=== PATIENT | female | born 1980 | race Caucasian/White ===

== ENCOUNTER 2022-09-08 21:30 | Emergency (ER) | payer OTHER, SELFPAY ==
[2022-09-08 21:35] VITALS: BP 122/74; PULSE 92; RESP 17; TEMP 37; O2SAT 100; BMI 26.5
--- NOTE | 2022-09-08 22:52 | DI.CT.S_ITS ---
PROCEDURE: CT ABDOMEN PELVIS W CON INDICATIONS: abdominal pain TECHNIQUE: After the administration of intravenous contrast, axial sections acquired from the lung bases to the pubic symphysis. Coronal and sagittal reformats were performed. For radiation dose reduction, the following was used: automated exposure control, adjustment of mA and/or kV according to patient size. COMPARISON: None. FINDINGS: Image quality: Good Lower chest: Basal scarring/atelectasis is present. Tiny hiatal hernia. Heart size is normal. Solid organs: Left lobe liver cyst. The liver is otherwise unremarkable. Gallbladder is under distended, unremarkable. No pathologic dilation of the biliary tree or pancreatic duct. No splenomegaly. No adrenal nodules. No hydronephrosis. Vessels and lymph nodes: The main portal vein is patent. No abdominal aortic aneurysm. No pathologic adenopathy by size criteria. Bowel and peritoneum: No evidence of small bowel obstruction. Mild wall thickening of the proximal duodenum. Mild wall thickening is also seen in the distal colon, as well as moderate stool burden in the sigmoid colon and rectum. No pathologic ascites. No abscess. Body wall: Unremarkable Pelvis: Overall physiologic appearance of the reproductive organs, along with uterine heterogeneity and possible fibroids. These findings are not well assessed on CT. Bladder is unremarkable. Bones: No acute or suspicious osseous finding. IMPRESSION: No evidence of bowel obstruction. No pathologic ascites or abscess. Suspected infectious or inflammatory duodenitis and colitis. Heterogeneous appearance of the reproductive organs, along with likely physiologic degree of pelvic fluid. Possible uterine fibroids. If there is concern for pelvic pathology, consider ultrasound. Other findings as above. Dictated by: Laci Barnes M.D. on 09/08/2022 at 23:23 Approved by: Laci Barnes M.D. on 09/08/2022 at 23:32
[2022-09-08] MEDS: SODIUM CHLORIDE 0.9% 1,000 ML 1000 ML IV (22:57)
[2022-09-08] MEDS: KETOROLAC 30 MG/ML VIAL 15 MG IV (22:57)
[2022-09-08 23:08] LABS: Add Manual Diff / Slide Review NO; Basophils Absolute Auto 100 /uL (0-100); Basophils Percent Auto 0.9 % (0-2); Eosinophils Absolute Auto 400 /uL (0-450); Eosinophils Percent Auto 4.9 % (2-4); Hematocrit 39.6 % (36-46); Hemoglobin 13.1 g/dL (12.0-16.0); Lymphocytes Absolute Auto 3900 /uL (1100-4500); Lymphocytes Percent Auto 42.9 % (25-40); Mean Corpuscular HGB Conc 33.1 % (30-36); Mean Corpuscular Hemoglobin 27.8 PG (26-34); Monocytes Absolute Auto 600 /uL (0-900); Monocytes Percent Auto 6.3 % (3-14); Neutrophils Absolute Auto 4100 /uL (1500-7000); Platelet Count 300 X10^3/uL (150-400); Red Blood Cell Count 4.72 X10^6/uL (4.0-5.2); Red Cell Distribution Width 13.9 % (11.6-14.8); White Blood Cell Count 9.1 X10^3/uL (4.5-11.0)
[2022-09-08 23:17] LABS: Alanine Aminotransferase 20 IU/L (<35); Albumin 4.5 g/dL (3.5-5.0); Albumin Globulin Ratio 1.4 (1.0-2.8); Alkaline Phosphatase 50 U/L (38-126); Aspartate Aminotransferase 25 IU/L (14-36); BUN Creatinine Ratio 26.2 (6-22); Bilirubin Total 0.4 mg/dL (0.2-1.3); Blood Urea Nitrogen 17 mg/dL (7-17); Calcium 9.6 mg/dL (8.4-10.2); Carbon Dioxide 29 mmol/L (22-32); Chloride 104 mmol/L (98-107); Estimated Glomerular Filt Rate > 60 mL/min (>60); Globulin 3.2 g/dL (1.7-4.1); Glucose 97 mg/dL (70-100); HEMOLYSIS < 15 (0-50); Potassium 3.7 mmol/L (3.4-5.1); Sodium 139 mmol/L (137-145); Total Protein 7.7 g/dL (6.3-8.2)
--- NOTE | 2022-09-08 23:30 | ED.GENADULT ---
HPI - General Adult General Chief complaint: Abdominal Pain Stated complaint: STOMACH PAIN,constipation [id number] Time Seen by Provider: 09/08/22 22:19 Source: patient Mode of arrival: Ambulatory History of Present Illness HPI narrative: 41-year-old woman presents with acute abdominal pain that is getting worse. She notes that she has not had a bowel movement in more than 8 days feels that she needs to go and is concerned that this is the issue. Over the last 6 months she is been having increasing problems with her bowels she finds that she can not go without some type of help and has been using Dulcolax and MiraLax. Over the last 6 months she typically has only been having a bowel movement twice a week. She has been unable to follow-up with her primary care doctor. She notes that since 2019, with significant effort she is lost 130 lb. In 2017 she completely stopped drinking alcohol and taking recreational Vicodin. She states that she does not use any prescription or recreational medication at this time beyond the MiraLax.. No fever, cough, chest pain, headache or rectal bleeding. Does not think she is ( with vas). Related Data Allergies Allergy/AdvReac Type Severity Reaction Status Date / Time No Known Drug Allergies Allergy Verified 09/08/22 21:52 Review of Systems Review of Systems Narrative: Pertinent positive and negative findings as per HPI Patient History Social History Smoking Status: Never smoker Smoking Status: Never smoker Substance Use Type: former substance user and marijuana Exam Initial Vital Signs Initial Vital Signs: Vital Signs Temperature 98.6 F 09/08/22 21:35 Pulse Rate 92 H 09/08/22 21:35 Respiratory Rate 17 09/08/22 21:35 Blood Pressure 122/74 09/08/22 21:35 Pulse Oximetry 100 09/08/22 21:35 Oxygen Delivery Method Room Air 09/08/22 21:35 General: Healthy appearing, in obvious pain secondary to abdominal discomfort but Able to give a complete and coherent history. Well-nourished well-developed HEENT: Moist mucous membranes, normal sclera with reactive pupils, Respiratory: Lungs are clear to auscultation, no wheezing no rales no rhonchi. Full and symmetrical air movement Cardiac: Regular rate and rhythm no murmurs no bruits Abdomen: Soft, mild diffuse tenderness without rebound or guarding, good bowel tones, no flank pain Rectal: There is no stool in the vault, no hemorrhoids and no obvious masses palpable Skin: Warm and dry, no rashes Neurologic: Grossly neurologically intact with no obvious asymmetries or abnormalities Extremities: No trauma, well perfused Psych: Cooperative, appropriate insight and affect Course Orders Ordered: ED Orders 09/08/22 22:52 CT abdomen pelvis w con Stat Complete Blood Count AUTO DIFF Stat Comprehensive Metabolic Panel Stat Sodium Chloride (Normal Saline 0.9%) 1,000 mls @ 1,000 mls/hr IV BOLUS ONE Stop: 09/08/22 23:51 Last Admin: 09/08/22 22:57 Dose: 1,000 mls/hr Documented By: AJIT Discontinued Medications Ketorolac Tromethamine (Ketorolac 30 Mg/Ml Vial) 15 mg IV NOW ONE Stop: 09/08/22 22:53 Last Admin: 09/08/22 22:57 Dose: 15 mg Documented By: AJIT Vital Signs Vital signs: Vital Signs - 8 hr 09/08/22 21:35 Temperature 98.6 F Pulse Rate 92 H Respiratory Rate 17 Blood Pressure 122/74 Pulse Oximetry 100 Oxygen Delivery Method Room Air Medical Decision Making Lab Data 09/08/22 23:00 09/08/22 23:00 Labs: Lab Results 09/08/22 09/08/22 Range/Units 23:00 23:00 WBC 9.1 (4.5-11.0) X10^3/uL RBC 4.72 (4.0-5.2) X10^6/uL Hgb 13.1 (12.0-16.0) g/dL Hct 39.6 (36-46) % MCV 84.0 (80-100) fL MCH 27.8 (26-34) PG MCHC 33.1 (30-36) % RDW 13.9 (11.6-14.8) % Plt Count 300 (150-400) X10^3/uL Neut % (Auto) 45.0 L (50-75) % Lymph % (Auto) 42.9 H (25-40) % [place] % (Auto) 6.3 (3-14) % Eos % (Auto) 4.9 H (2-4) % Baso % (Auto) 0.9 (0-2) % Neut # (Auto) 4100 (5800-8867) /uL Lymph # (Auto) 3900 (1837-7163) /uL [place] # (Auto) 600 (0-900) /uL Eos # (Auto) 400 (0-450) /uL Baso # (Auto) 100 (0-100) /uL Sodium 139 (137-145) mmol/L Potassium 3.7 (3.4-5.1) mmol/L Chloride 104 (98-107) mmol/L Carbon Dioxide 29 (22-32) mmol/L BUN 17 (7-17) mg/dL Creatinine 0.65 (0.52-1.04) mg/dL Estimated GFR > 60 (>60) mL/min BUN/Creatinine Ratio 26.2 H (6-22) Glucose 97 (70-100) mg/dL Calcium 9.6 (8.4-10.2) mg/dL Total Bilirubin 0.4 (0.2-1.3) mg/dL AST 25 (14-36) IU/L ALT 20 (<35) IU/L Alkaline Phosphatase 50 (38-126) U/L Total Protein 7.7 (6.3-8.2) g/dL Albumin 4.5 (3.5-5.0) g/dL Globulin 3.2 (1.7-4.1) g/dL Albumin/Globulin Ratio 1.4 (1.0-2.8) Point of Care Testing Test Results Negative Urine Dip Bedside Urine Glucose Negative Bedside Urine Bilirubin - Negative Bedside Urine Ketone - Negative Urine Specific [place] 1.01 Bedside Urine Occult Blood - Negative Bedside Urine pH 6 Bedside Urine Protein - Negative Bedside Urine Urobilinogen - Negative Bedside Urine Nitrite - Negative Bedside Urine Leukocytes - Negative Esterase Point of care testing: Point of Care Testing Test Results Negative Urine Dip Bedside Urine Glucose Negative Bedside Urine Bilirubin - Negative Bedside Urine Ketone - Negative Urine Specific [place] 1.01 Bedside Urine Occult Blood - Negative Bedside Urine pH 6 Bedside Urine Protein - Negative Bedside Urine Urobilinogen - Negative Bedside Urine Nitrite - Negative Bedside Urine Leukocytes - Negative Esterase MDM Narrative Medical decision making narrative: CC: Abdominal pain with constipation Complicating co-morbidities: Worsening symptoms over the last 6 months. History of opioid use disorder with no opioids since 2018 Data collected from: patient, No Medical records are available for review Differential considered: Constipation, bowel obstruction, tumors or masses, intra-abdominal infection Exam documented above, pertinent findings include: Fairly benign abdominal exam and no stool in the rectal vault. Lab Test results independently reviewed as above. Pertinent findings: CBC shows no significant abnormalities Chemistries are unremarkable Imaging studies independently reviewed: CT scan of the abdomen and pelvis shows no significant pathology with moderate amounts of stool in the sigmoid colon and occasional areas of colonic inflammation. Discussion: 41-year-old woman with significant abdominal pain from obstipation. No evidence of bowel perforation, obstruction, external masses or acute surgical abdomen. She will be discharged home with magnesium citrate and instructions on increasing her MiraLax. She does need follow-up with her primary care doctor and given the change in bowel symptoms over the last 6 months likely needs GI follow-up with colonoscopy as well. She is safe for discharge home at this time Discharge Plan Departure Patient Disposition: Home Clinical Impression: Constipation Qualifiers: Constipation type: slow transit constipation Qualified Code(s): K59.01 - Slow transit constipation Instructions: DI for Constipation Activity Restrictions/Additional Instructions: Thank you for coming in today Your lab work was very reassuring. There is no evidence of significant infection or electrolyte abnormalities. CT scan of your abdomen shows constipation without additional complications. Specifically there does not appear to be a bowel perforation, acute appendicitis, diverticulitis and no obvious tumors or obstructing masses are appreciated. I have given you a bottle of magnesium citrate to try when you get home. This is [id number]. If you find that it is not enough to produce a large bowel movement you can buy a 2nd bottle and try again a couple of hours later. Once you have cleaned out the current amount of stool, I am going to recommend that you increase MiraLax. The appropriate dose of MiraLax is the dose that allows you to have a bowel movement daily to every other day. This is not a medicine that you can overdose on. I would recommend increasing to at least 2 cap fulls daily in the morning and if you have not had a bowel movement by the end of the day another careful with bedtime. Looking at diet and increasing fiber as much as you are able is entirely appropriate. Given the significant change to your bowels over the last 6 months referral to desk operator and possible colonoscopy may well be part of the discussion that you need to have with your primary care physician. Please make sure you do call your primary care physician to schedule a follow-up appointment. If you find that you are getting worse or develop any new symptoms, please feel free to return to the emergency department for further evaluation. Stand Alone Forms: Patient Portal/API
[2022-09-08] MEDS: ONDANSETRON 4 MG/2 ML INJ IV (23:49)
[2022-09-08] MEDS: DICYCLOMINE 10 MG CAPSULE 20 MG PO (23:49)
[2022-09-09] MEDS: MAGNESIUM CITRATE 300 ML SOLUTION PO
[2022-09-09 00:08] VITALS: BP 124/72; PULSE 82; RESP 16; O2SAT 100
== END 2022-09-09 00:09 | disposition home or self-care (01) ==
PROVIDERS: Emergency Provider Emergency Medicine
DX: K59.01 Slow transit constipation (principal); R10.9 Unspecified abdominal pain
CPT/HCPCS: 36415; 74177; 80053; 81003; 81025; 85025; 96361; 96374; 96375; 99284; J1885; J2405; Q9967

== ENCOUNTER → 2023-01-15 09:30 | Oncology outpatient (ONC) | payer OTHER, MEDICAID, SELFPAY ==
--- NOTE | 2022-12-30 15:19 | ONC.SCHED ---
Venofer infusions: Patient called and LVM to schedule her appointments for Venofer from Raz Dailey PA-C. I called her back and LVM with a tentative appointment scheduled for 01/01/2023 at 0930. Asked patient to call back to confirm time.
[2023-01-01 09:53] VITALS: BP 102/65; PULSE 68; RESP 16; TEMP 36.8; O2SAT 99
[2023-01-01] MEDS: LORATADINE 10 MG TABLET PO (09:58)
[2023-01-01] MEDS: ACETAMINOPHEN 325 MG TABLET 650 MG PO (09:58)
[2023-01-01] MEDS: IRON SUCROSE 300 MG in SODIUM CHLORIDE 0.9% 250 ML 176.667 MG IV (10:17)
[2023-01-08 10:10] VITALS: BP 114/69; PULSE 77; RESP 16; TEMP 37.1; O2SAT 99
[2023-01-08] MEDS: ACETAMINOPHEN 325 MG TABLET 650 MG PO (10:44)
[2023-01-08] MEDS: LORATADINE 10 MG TABLET PO (10:44)
--- NOTE | 2023-01-08 10:54 | PC.NURSE ---
Addendum entered by Beckie Cayr R.N. 01/08/23 15:32: Received message from SARAH Sheridan at Gastroenter[facility]. Per Fatimah, Pt should have CBC and iron studies done after 3rd infusion on 01/15/23. This RN LVM for SARAH Sheridan to fax orders to clinic, fax number provided. Original Note: Spoke with nurse for Gemma Dailey PA-C at [facility] to request lab results be faxed to us. Last labs were done October 09, 2022. Asked triage nurse if she needs any labs drawn today. She stated no. She will check with the Dr to ask when patient will be due again for labs. Patient here today to receive dose #2 of 3 Venofer. She tolerated the first infusion without difficulty per patient report.
[2023-01-08] MEDS: IRON SUCROSE 300 MG in SODIUM CHLORIDE 0.9% 250 ML 176.667 MG IV (11:03)
[2023-01-15 09:21] VITALS: BP 102/60; PULSE 72; RESP 16; TEMP 36.9; O2SAT 98
[2023-01-15] MEDS: IRON SUCROSE 300 MG in SODIUM CHLORIDE 0.9% 250 ML 176.667 MG IV (09:45)
== END ==
PROVIDERS: Visit Provider Nurse Practitioner Family
DX: D50.9 Iron deficiency anemia, unspecified (principal)
CPT/HCPCS: 96365; 96366; J1756

== ENCOUNTER → 2023-07-22 13:04 | Outpatient (CLI) | payer OTHER, MEDICAID, SELFPAY ==
[2023-07-22 14:06] LABS: Add Manual Diff / Slide Review NO; Basophils Absolute Auto 0 /uL (0-100); Basophils Percent Auto 0.6 % (0-2); Eosinophils Absolute Auto 300 /uL (0-450); Eosinophils Percent Auto 3.3 % (2-4); Hematocrit 41.9 % (36-46); Hemoglobin 14.1 g/dL (12.0-16.0); Lymphocytes Absolute Auto 2700 /uL (1100-4500); Lymphocytes Percent Auto 34.4 % (25-40); Mean Corpuscular HGB Conc 33.6 % (30-36); Mean Corpuscular Hemoglobin 29.4 PG (26-34); Mean Corpuscular Volume 87.4 fL (80-100); Monocytes Absolute Auto 300 /uL (0-900); Monocytes Percent Auto 4.5 % (3-14); Neutrophils Absolute Auto 4400 /uL (1500-7000); Neutrophils Percent Auto 57.2 % (50-75); Platelet Count 270 X10^3/uL (150-400); Red Blood Cell Count 4.79 X10^6/uL (4.0-5.2); Red Cell Distribution Width 13.4 % (11.6-14.8); White Blood Cell Count 7.8 X10^3/uL (4.5-11.0)
[2023-07-22 14:31] LABS: HEMOLYSIS < 15 (0-50); Iron 85 ug/dL (37-170)
[2023-07-22 14:43] LABS: Percent Iron Saturation 27 % (15-50); Total Iron Binding Capacity 315 ug/dL (265-497); Transferrin 253 mg/dL (206-381)
[2023-07-22 15:06] LABS: Ferritin 48 ng/mL (6-137)
== END ==
PROVIDERS: PCP Family Medicine; Referring Provider Nurse Practitioner Family; Visit Provider Nurse Practitioner Family
DX: D50.9 Iron deficiency anemia, unspecified (principal)
CPT/HCPCS: 36415; 82728; 83540; 83550; 85025

== ENCOUNTER → 2023-08-15 13:42 | Outpatient (CLI) | payer OTHER, MEDICAID, SELFPAY ==
--- NOTE | 2023-08-15 13:44 | DI.RAD.S_ITS ---
PROCEDURE: XR SHOULDER LT MIN 2V INDICATIONS: Left shoulder pain TECHNIQUE: 3 views of the shoulder were acquired. COMPARISON: None. FINDINGS: Bones: No acute fractures or dislocations. No suspicious bony lesions. Visualized ribs appear intact. Mild degenerative changes of the acromioclavicular joint. Soft tissues: Calcifications are seen adjacent to the greater tuberosity compatible with calcific tendinopathy. IMPRESSION: Rotator cuff calcific tendinopathy. No acute osseous abnormality. Approved by: Javier Do M.D. on 08/15/2023 at 15:22
== END ==
PROVIDERS: PCP Family Medicine; Referring Provider Nurse Practitioner Family; Visit Provider Nurse Practitioner Family
DX: M25.512 Pain in left shoulder (principal)
CPT/HCPCS: 73030

== ENCOUNTER → 2023-08-21 15:47 | Outpatient (CLI) | payer OTHER, MEDICAID, SELFPAY ==
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
== END ==
PROVIDERS: PCP Family Medicine; Referring Provider Nurse Practitioner Family; Visit Provider Nurse Practitioner Family
DX: M25.522 Pain in left elbow (principal); M25.552 Pain in left hip
CPT/HCPCS: 73080; 73502

== ENCOUNTER 2025-01-18 06:21 | Day surgery (SDC) | payer OTHER, SELFPAY ==
[2024-12-22 14:13] VITALS: BMI 26.5
--- NOTE | 2025-01-18 | PATH_ITS ---
[facility] Accession Number: [id number] No. of containers..01 Tissue . 01 Material submitted: . endometrium - ENDOMETRIAL CURETTING . 01 Diagnosis: ENDOMETRIAL CURETTING: Proliferative endometrium with patchy regions of stromal breakdown; negative for endometrioid intraepithelial neoplasia or malignancy. MRV 01/27/2025 1658 Local . 01 Electronically signed: . Emily Hopkins MD, Pathologist NPI- [id number] . 01 Gross description: . Received in formalin with two identifiers and endometrial curetting is a 2.0 x 2.0 x 0.3 cm aggregate of red-brown, hemorrhagic tissue fragments, entirely submitted in A1. ([id number]) /V 01/25/2025 1755 Local . 01 Pathologist provided ICD-10: N92.0, D25.1 . 01 CPT . 836047 Specimen Comment: A courtesy copy of this report has been sent to [phone] Performed at: [address] [address] [address], [place], [place] [id number] MD Elijah Escalante MD Phone: [phone]
[2025-01-18 07:03] VITALS: BP 109/71; PULSE 70; RESP 17; TEMP 36.6; O2SAT 97
[2025-01-18 07:05] VITALS: BMI 26.5
--- NOTE | 2025-01-18 07:17 | EKG_ITS ---
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
[2025-01-18] MEDS: LACTATED RINGERS 1,000 ML 21 ML IV (07:18)
--- NOTE | 2025-01-18 07:35 | P.HPOB_ITS ---
History of Present Illness History of Present Illness Reason for admission: vaginal bleeding Narrative: Sushma Jose is a 44 year old female 4 para 2 who presents for a D&C hysteroscopy with NovaSure endometrial ablation due to menorrhagia and fibroids. REPLACED BY [facility] Medical History (Updated 12/22/24 @ 14:25 by Missy Giang RN) Anxiety and depression Iron deficiency anemia Dysmenorrhea Menorrhagia with regular cycle Surgical History (Updated 12/22/24 @ 14:25 by Missy Giang RN) History of section (03/02/10) H/O lithotripsy History of section Social History household members: spouse Smoking Status: Former smoker alcohol intake: former Meds Home Medications and Allergies Allergies Allergy/AdvReac Type Severity Reaction Status Date / Time No Known Drug Allergies Allergy Verified 01/18/25 07:02 Exam Vital Signs (past 8 hours): - 01/18/25 07:03 Temperature 97.8 F Pulse Rate 70 Respiratory Rate 17 Blood Pressure 109/71 Pulse Oximetry 97 Oxygen Delivery Method Room Air Oxygen Delivery Method Room Air Narrative Exam Narrative: HEENT: No thyromegaly, no anterior cervical or supraclavicular lymphadenopathy. Lungs:Clear to auscultation bilaterally, no wheezes. Cardiovascular: Regular rate and rhythm, no murmurs, rubs, or gallops. Abdomen: Well-healed Pfannenstiel scars. No hepatosplenomegaly. No masses palpable. External genitalia: Normal Vagina: Normal Cervix: Normal Bimanual exam: A Week size anteverted uterus. Mobile. Assessment & Plan Assessment & Plan narrative: Assessment: 44-year-old 4 para 2 with menorrhagia, dysmenorrhea, and fibroids Plan: D&C hysteroscopy with NovaSure endometrial ablation The risks, benefits, and alternatives to the procedure were explained to the patient. The risks including bleeding, infection, and uterine perforation. She understands these risks and agrees to proceed. A full par Q was held and consent form was signed. Time-Based Coding :: [TOTAL MINUTES] spent with patient and on the chart (including review of chart, obtaining history, exam, reviewing outside data, placing orders, documenting exam and treatment plan, and counseling patient) on [DATE].
--- NOTE | 2025-01-18 07:36 | PM.PREOP ---
Pre-operative Note Interval Note History & Physical reviewed/Exam performed by Physician: Yes Changes to H&P: No H&P completed within 30 days and has changed as indicated here:: 01/18/25
--- NOTE | 2025-01-18 08:03 | SUR.OPER ---
Lithotomy on padded OR bed, head on pillow, arms secured on padded arm boards at <90 degrees abduction. Legs secured in padded yellow fins stirrups.
[2025-01-18] MEDS: ACETAMINOPHEN IV 1,000 MG/100 ML VIAL 400 MG IV (08:15)
--- NOTE | 2025-01-18 08:21 | PM.GYNOP.1 ---
Operative Date/Time/Diagnoses Date of procedure: 01/18/25 Time of procedure: 08:21 Pre-op diagnosis: Menorrhagia Intramural fibroid Dysmenorrhea Post-op diagnosis: same Procedure & Clinicians Procedure: Procedures Operation Date: 01/18/25 07:45 Actual Procedure Side Surgeon lina D&Rebecca Hysteroscopy w/ Novasure Ablation Luna Walter MD Indications: 44-year-old 4 para 2 with menorrhagia, dysmenorrhea, and an intramural fibroid Surgeon: Luna Walter Anesthesia Type: General (LMA) Operative Notes Findings: 7 week size anteverted uterus Both fallopian tube ostia observed Thickened endometrial lining on the right and posterior side Closure Type: not applicable Specimen(s): endometrial curettings Applied: device(s) (NovaSure catheter) Estimated blood loss (mL): 5 Blood products transfused: none Procedure in detail: After informed consent was obtained, the patient was taken to the operating room where she was placed in the dorsal supine position. After adequate LMA general anesthesia was achieved, she was placed in the dorsal lithotomy position, and prepped and draped in the usual sterile fashion. A time-out was performed. A bivalve speculum was placed into the vagina and the anterior lip of the cervix was grasped with a single-tooth tenaculum. The cervical os was sequentially dilated to the # 8 Hegar dilator. The hysteroscope passed easily into the endometrial cavity. Both fallopian tube ostia were observed. There was thickened endometrium on the right and posterior sides of the uterus. The hysteroscope was removed. Sharp curettage was performed yielding a large amount of endometrial curettings. The uterus was measured from the internal os to the fundus and measured 5 cm in length. The NovaSure catheter passed easily into the endometrial cavity and was opened. The width of the uterus was 3.3 cm. This indicated a power of 91 w. the cervix was capped, the cavity assessment was performed and passed. The cycle was initiated and lasted 1 minute and 34 seconds. The cervix was uncapped. The NovaSure catheter was closed and removed from the uterus. The single-tooth tenaculum was removed from the anterior lip of the cervix. The bivalve speculum was removed from the vagina. Sponge, lap, and instrument counts were correct x2. The patient tolerated the procedure well, and was taken to PACU in stable condition. Complications: none Post-operative Condition: stable Disposition: PACU Plan for aftercare: Home after recovery
[2025-01-18 08:24] VITALS: BP 111/51; PULSE 66; RESP 20; TEMP 37.2; O2SAT 96
[2025-01-18 08:30] VITALS: BP 117/59; PULSE 54; RESP 24; O2SAT 97
[2025-01-18 08:35] VITALS: BP 119/61; PULSE 55; RESP 21; O2SAT 97
[2025-01-18] MEDS: ONDANSETRON 4 MG/2 ML INJ IV (08:37)
[2025-01-18 08:40] VITALS: BP 117/58; PULSE 63; RESP 23; TEMP 36.1; O2SAT 97
[2025-01-18 08:47] VITALS: BP 108/60; PULSE 76; RESP 20; O2SAT 97
== END 2025-01-18 09:11 | disposition home or self-care (01) ==
PROVIDERS: PCP Nurse Practitioner Family; Referring Provider Obstetrics & Gynecology; Visit Provider Obstetrics & Gynecology
PROC: 0U5B8ZZ Destruction of Endometrium, Via Natural or Artificial Opening Endoscopic (ICD-10-PCS; CPT 58563; principal; 2025-01-18 07:45)
DX: N92.0 Excessive and frequent menstruation with regular cycle (principal); D25.1 Intramural leiomyoma of uterus; Z87.891 Personal history of nicotine dependence
CPT/HCPCS: 58563; 93005; J0131; J1100; J1885; J2405; J2704